=== PATIENT | female | born 1995 | race American Indian/Alaskan Native ===

== ENCOUNTER 2018-04-22 18:05 | Inpatient (IN) | payer MEDICAID ==
[2018-04-22] MEDS ORDERED: LACTATED RINGERS 1,000 ML ONE (21:02)
[2018-04-22] MEDS: LACTATED RINGERS 1,000 ML IV SCH (21:15)
[2018-04-22] MEDS ORDERED: CERVIDIL VG ONE (22:29)
[2018-04-22] MEDS ORDERED: AMBIEN PO PRN (22:29)
[2018-04-22] MEDS ORDERED: STADOL IV PRN (22:29)
[2018-04-22 22:55] LABS: Hematocrit 35.1 % (30.3-42.9); Hemoglobin 12.1 gm/dl (10.1-14.3); Mean Corpuscular HGB Conc 34 % (30-34); Mean Corpuscular Volume 91 fl (79-97); Platelet Count 232 K/mm3 (140-440); Red Blood Count 3.85 M/mm3 (3.65-5.03); Red Cell Distribution Width 13.5 % (13.2-15.2)
[2018-04-23] MEDS ORDERED: PITOCin/NS 30 UNIT/500ML 30 UNITS/500 ML BAG IV SCH (12:00)
[2018-04-23] MEDS: LACTATED RINGERS 1,000 ML IV SCH ×3 (15:29→18:32)
--- NOTE | 2018-04-23 16:23 | History and Physical Report ---
History of Present Illness Date of examination: 04/23/18 Date of admission: 04/22/18 18:05 Chief complaint: IOL History of present illness: 22y/o @ 40+4 weeks being induced for oligohydramnios of 4cm. The patient initiated care @ 11 weeks ega. course complicated by obesity. GBS negative. Past History Past Medical History: no pertinent history Past Surgical History: no surgical history Social history: single - Obstetrical History Expected Date of Delivery: 04/19/18 Actual Gestation: 40 Week(s) 4 Day(s) : 2 Para: 1 Hx # Term Pregnancies: 1 Number of Pregnancies: 0 Spontaneous Abortions: 0 Induced : 0 Number of Living Children: 1 Medications and Allergies Allergies Allergy/AdvReac Type Severity Reaction Status Date / Time No Known Allergies Allergy Verified 04/22/18 22:35 Home Medications Medication Instructions Recorded Confirmed Last Taken Type Pnv,Calcium 72/Iron/Folic Acid 1 tab PO DAILY 04/22/18 04/22/18 04/21/18 History [Pnv Plus Multivit Tab] Active Meds: Active Medications Butorphanol Tartrate (Stadol) 2 mg IV Q2H PRN PRN Reason: Labor Pain Lactated Ringer's (Lactated Ringers) 1,000 mls @ 125 mls/hr IV DIRECT MARVEL Last Admin: 04/23/18 15:29 Dose: 999 mls/hr Documented by: Oxytocin/Sodium Chloride (Pitocin/Ns 30 Unit/500ml) 30 units in 500 mls @ 4 mls/hr IV TITR MARVEL; Protocol Last Admin: 04/23/18 15:30 Dose: 4 milliunits/min, 4 mls/hr Documented by: Zolpidem Tartrate (Ambien) 10 mg PO QHS PRN PRN Reason: Insomnia - Vital Signs Vital signs: Vital Signs Pulse BP 82 119/62 04/22/18 19:42 04/22/18 19:42 Temp Pulse Resp BP Pulse Ox 96.9 F L 80 20 135/80 04/23/18 03:56 04/23/18 16:00 04/23/18 03:56 04/23/18 16:00 - Physical Exam Breasts: Positive: deferred Cardiovascular: Regular rate Lungs: Positive: Clear to auscultation Abdomen: Positive: normal appearance Results Result Diagrams: 04/22/18 21:15 All other labs normal. Assessment and Plan - Patient Problems (1) Oligohydramnios Current Visit: Yes Status: Acute Plan to address problem: admit for induction of labor (2) Oligohydramnios Current Visit: Yes Status: Acute (3) Post-term Current Visit: Yes Status: Acute
[2018-04-23] MEDS ORDERED: XYLOCAINE 2%/ EPI 1:200,000 INFILTRATI ONE (17:43)
[2018-04-23] MEDS ORDERED: SUBLIMAZE ONE (17:43)
[2018-04-23] MEDS ORDERED: NARCAN 2 MG/2 ML IV PRN (18:09)
--- NOTE | 2018-04-23 18:11 | Anesthesia Consultation ---
Anesthesia Consult and Med Hx Date of service: 04/23/18 - Airway Anesthetic Teeth Evaluation: Good ROM Head & Neck: Adequate Mental/Hyoid Distance: Adequate Mallampati Class: Class II Intubation Access Assessment: Good - Pulmonary Exam CTA: Yes - Cardiac Exam Cardiac Exam: RRR - Pre-Operative Health Status ASA Pre-Surgery Classification: ASA2 Proposed Anesthetic Plan: Epidural - Pulmonary Hx Smoking: No Hx Asthma: No COPD: No Hx Pneumonia: No - Cardiovascular System Hx Hypertension: No Hx Coronary Artery Disease: No Hx Cardia Arrhythmia: No - Central Nervous System Hx Neuromuscular Disorder: No Hx Seizures: No Hx Psychiatric Problems: No - Endocrine Hx Renal Disease: No Hx End Stage Renal Disease: No Hx Cirrhosis: No Hx Insulin Dependent Diabetes: No Hx Non-Insulin Dependent Diabetes: No Hx Hypothyroidism: No Hx Hyperthyroidism: No - Hematic Hx Anemia: No Hx Sickle Cell Disease: No - Other Systems Hx Alcohol Use: Yes Hx Obesity: Yes (48 BMI)
[2018-04-23] MEDS ORDERED: PITOCin/NS 20 UNIT/1000ML DRIP 20,000 MILLIUNITS/1,000 ML BAG IV ONE (18:33)
[2018-04-23] MEDS ORDERED: fentaNYL-BUPIV 2 MCG/ML-0.125% 200 MCG/100 ML BAG EPIDURAL SCH (19:00)
[2018-04-23] MEDS ORDERED: XYLOCAINE 2% INFILTRATI ONE (19:43)
[2018-04-23] MEDS ORDERED: MINERAL OIL ONE (19:44)
[2018-04-23] MEDS ORDERED: PHENERGAN PR PRN (23:13)
[2018-04-23] MEDS ORDERED: DULCOLAX PR PRN (23:13)
[2018-04-23] MEDS ORDERED: BENADRYL PO PRN (23:13)
[2018-04-23] MEDS ORDERED: MILK OF MAGNESIA PO PRN (23:13)
[2018-04-23] MEDS ORDERED: TYLENOL PO PRN (23:13)
[2018-04-23] MEDS ORDERED: LANSINOH TP PRN (23:13)
[2018-04-23] MEDS ORDERED: ZOFRAN IV PRN (23:13)
[2018-04-23] MEDS ORDERED: PHENERGAN PO PRN (23:13)
[2018-04-23] MEDS ORDERED: TUCKS PAD TP PRN (23:13)
[2018-04-23] MEDS ORDERED: NORCO 5/325 PO PRN (23:13)
[2018-04-23] MEDS ORDERED: SODIUM CHLORIDE FLUSH SYRINGE 10 ML IV NR (23:45)
--- NOTE | 2018-04-23 23:50 | Procedure Note ---
OB Delivery Note - Delivery Date of Delivery: 04/23/18 Surgeon: SUSIE OCONNELL Estimated blood loss: 100cc - Vaginal Delivery presentation: vertex Delivery position: OP Intrapartum events: none Delivery augmentation: pitocin Delivery monitor: external FHT Route of delivery: Delivery placenta: spontaneous Delivery cord: 3 umbilical vessels Episiotomy: none Delivery laceration: none Anesthesia: epidural Delivery comments: Patient progressed to complete complete +2 and pushed to deliver a liveborn female infant with Apgars of 8 and 9 weight 7 lbs. 0 oz. After delivery of the head the shoulders delivered without difficulty. The infant was bulb suctioned. The cord was clamped and cut 2 and the infant was placed on the warmer. The placenta delivered spontaneously intact with a three-vessel cord. No lacerations were noted. Estimated blood loss of 100 mL. - A at 1 minute: 8 at 5 minutes: 9 Infant Gender: Female (weight 7 lbs. 0 oz.)
[2018-04-24] MEDS: IBUPROFEN PO SCH ×3 (05:41→23:52)
--- NOTE | 2018-04-24 07:23 | Post Anesthesia Evaluation ---
- Post Anesthesia Evaluation Patient Participated: Yes Airway Patent: Yes Stable Respiratory Function: Yes Nausea/Vomiting: No Temp > 96.8F: Yes Pain Manageable: Yes Adequeate Hydration: Yes Anesthesia Complications: No Block Receding Appropriately: Yes Patient on Ventilator: No
--- NOTE | 2018-04-24 08:39 | Progress Note ---
Assessment and Plan A/P PPD1 s/p Doing well vss consider d/c home tomorrow Subjective - Subjective Date of service: 04/24/18 Principal diagnosis: s/p Patient reports: appetite normal, voiding normally, pain well controlled, flatus, ambulating normally : doing well Objective - Vital Signs Latest vital signs: Vital Signs Temp Pulse Resp BP BP Pulse Ox 04/24/18 08:33 98.9 F 78 18 112/49 97 04/24/18 06:32 20 04/24/18 05:41 18 04/24/18 03:26 98.2 F 90 20 113/58 100 04/24/18 01:35 96 H 115/56 04/24/18 01:20 96 H 113/57 04/24/18 01:10 95 H 115/61 04/24/18 00:53 96 H 97 04/24/18 00:50 94 H 140/63 04/24/18 00:48 92 H 94 04/24/18 00:43 87 98 04/24/18 00:38 101 H 98 04/24/18 00:37 105 H 84 04/24/18 00:33 98 H 97 04/24/18 00:32 92 H 92 04/24/18 00:28 90 97 04/24/18 00:23 98 H 98 04/24/18 00:20 99 H 130/63 04/24/18 00:18 96 H 96 04/24/18 00:16 100 H 94 04/24/18 00:13 98 H 97 04/24/18 00:11 107 H 94 04/24/18 00:08 93 H 100 04/24/18 00:05 99 H 116/50 88 04/24/18 00:03 107 H 100 04/23/18 23:58 81 100 04/23/18 23:53 87 127/61 97 04/23/18 23:51 110 H 132/65 04/23/18 23:36 95 H 134/62 04/23/18 23:20 86 126/56 04/23/18 23:06 86 149/65 04/23/18 22:53 74 100 04/23/18 22:52 72 103/49 04/23/18 22:48 90 98 04/23/18 22:43 79 99 04/23/18 22:38 78 100 04/23/18 22:35 74 168/72 04/23/18 22:33 87 100 04/23/18 22:29 82 68 L 04/23/18 22:28 82 99 04/23/18 22:23 77 92 04/23/18 22:22 88 93 04/23/18 22:20 93 H 152/92 04/23/18 22:18 90 100 04/23/18 22:13 74 100 04/23/18 22:08 77 100 04/23/18 22:05 74 144/85 04/23/18 22:03 72 100 04/23/18 21:58 84 100 04/23/18 21:53 70 100 04/23/18 21:50 72 121/60 04/23/18 21:48 80 100 04/23/18 21:43 75 100 04/23/18 21:38 77 99 04/23/18 21:35 71 126/60 04/23/18 21:33 77 100 04/23/18 21:28 69 100 04/23/18 21:23 69 100 04/23/18 21:20 69 133/61 04/23/18 21:18 70 100 04/23/18 21:17 72 117/64 04/23/18 21:13 71 100 04/23/18 21:08 73 100 04/23/18 21:03 81 100 04/23/18 21:01 105 H 93 04/23/18 20:58 76 100 04/23/18 20:53 79 100 04/23/18 20:50 100 H 93 04/23/18 20:48 83 100 04/23/18 20:43 80 100 04/23/18 20:38 83 100 04/23/18 20:35 81 124/56 04/23/18 20:33 80 100 04/23/18 20:28 103 H 100 04/23/18 20:23 109 H 100 04/23/18 20:20 100 H 118/55 04/23/18 20:18 101 H 98 04/23/18 20:13 91 H 100 04/23/18 20:08 84 100 04/23/18 20:07 81 97/55 04/23/18 19:55 73 88 04/23/18 19:53 78 100 03/07/19 19:50 80 113/55 04/23/18 19:48 79 100 04/23/18 19:45 84 74 L 04/23/18 19:43 79 100 04/23/18 19:38 76 100 04/23/18 19:36 101 H 109/62 68 L 04/23/18 19:33 82 100 04/23/18 19:28 75 100 04/23/18 19:24 83 93 04/23/18 19:23 82 100 04/23/18 19:20 74 133/59 04/23/18 19:18 78 100 04/23/18 19:15 97.6 F 73 20 133/59 100 04/23/18 19:14 77 130/58 04/23/18 19:13 73 99 04/23/18 19:08 72 100 04/23/18 19:03 71 100 04/23/18 18:58 74 100 04/23/18 18:53 84 99 04/23/18 18:51 77 127/58 04/23/18 18:48 79 100 04/23/18 18:43 72 99 04/23/18 18:38 83 100 04/23/18 18:34 83 133/62 04/23/18 18:33 83 99 04/23/18 18:32 92 H 116/67 04/23/18 18:30 94 H 127/66 04/23/18 18:28 82 100 04/23/18 18:27 80 128/60 04/23/18 18:25 81 124/58 04/23/18 18:23 79 120/58 100 04/23/18 18:22 78 131/60 04/23/18 18:20 101 H 124/56 04/23/18 18:18 109 H 129/59 100 04/23/18 18:15 81 131/59 04/23/18 18:13 83 134/60 04/23/18 18:11 90 134/61 04/23/18 18:09 81 134/58 04/23/18 18:08 76 135/65 04/23/18 18:07 73 99 04/23/18 18:06 72 166/58 04/23/18 18:03 81 89/44 04/23/18 18:02 82 98 04/23/18 18:01 93 H 102/51 04/23/18 17:57 93 H 100 04/23/18 17:52 95 H 100 04/23/18 17:47 92 H 100 04/23/18 17:42 79 100 04/23/18 17:37 91 H 99 04/23/18 17:29 81 142/85 04/23/18 16:59 81 123/80 04/23/18 16:49 64 124/67 04/23/18 16:30 75 120/57 04/23/18 16:00 80 135/80 04/23/18 15:13 75 117/65 Intake and Output 04/23/18 04/24/18 04/24/18 23:59 07:59 15:59 Intake Total 1865.8 240 360 Output Total 300 Balance 1865.8 -60 360 Intake: IV 1865.8 Lactated Ringers 1,000 ml 1865.8 @ 125 mls/hr IV DIRECT MARVEL Rx#:[id number] Oral 240 Intake, Free Water 360 Output: Urine 300 Void 300 Other: Total, Intake Amount 240 Total, Output Amount 300 # Voids Void 1 1 Estimated Blood Loss 100 - Exam Breasts: Present: normal Cardiovascular: Present: Regular rate, Normal S1 Lungs: Present: Clear to auscultation, Normal air movement Abdomen: Present: normal appearance, soft, normal bowel sounds. Absent: distention, tenderness, guarding Uterus: Present: normal, firm, fundal height below umbilicus. Absent: bogginess, tenderness Extremities: Present: normal Deep Tendon Reflex Grade: Normal +2 Incision: Present: normal
--- NOTE | 2018-04-24 12:49 | Discharge Summary ---
Providers - Providers Date of Admission: 04/22/18 18:05 Date of discharge: 04/25/18 Attending physician: SUSIE OCONNELL Primary care physician: SUSIE OCONNELL Hospitalization Reason for admission: active labor, induction of labor Delivery: Episiotomy: none Laceration: none Incision: normal, dry, intact Other procedures: none Discharge diagnosis: IUP at term delivered baby: female Hospital course: unnremarkable hospital course Condition at discharge: Good Disposition: DC-01 TO HOME OR SELFCARE Plan - Discharge Medications Prescriptions: Ibuprofen [Motrin] 600 mg PO Q8H PRN #30 tablet PRN Reason: Pain oxyCODONE /ACETAMINOPHEN [Percocet 5/325] 1 tab PO Q6HR PRN #30 tablet PRN Reason: Pain - Provider Discharge Summary Activity: routine, no sex for 6 weeks, no strenuous exercise Diet: routine Instructions: routine Additional instructions: [] Smoking cessation referral if applicable(refer to patient education folder for contact #) [] Refer to [facility] Booklet Call your doctor immediately for: * Fever > 100.5 * Heavy vaginal bleeding ( >1 pad per hour) * Severe persistent headache * Shortness of breath * Reddened, hot, painful area to leg or breast * Drainage or odor from incision. * Keep incision clean and dry at all times and follow doctor's instructions regarding bathing/showering - Follow up plan Follow up: SUSIE OCONNELL MD [Primary Care Provider] - 05/21/18
[2018-04-24 13:25] LABS: Hematocrit 33.9 % (30.3-42.9); Hemoglobin 11.6 gm/dl (10.1-14.3)
[2018-04-25 10:43] VITALS: BP 99/47
== END 2018-04-25 12:50 | disposition home or self-care (01) | DRG 775 ==
LOC: LD 18:05 → OB 04-24 02:14
PROVIDERS: ADMIT Obstetrics & Gynecology; ATTEND Obstetrics & Gynecology
PROC: 10E0XZZ Delivery of Products of Conception, External Approach (ICD-10-PCS; principal; 2018-04-23)
PROC: 3E0R3BZ Introduction of Anesthetic Agent into Spinal Canal, Percutaneous Approach (ICD-10-PCS; 2018-04-23)
PROC: 00HU33Z Insertion of Infusion Device into Spinal Canal, Percutaneous Approach (ICD-10-PCS; 2018-04-23)
DX: O41.03X0 Oligohydramnios, third trimester, not applicable or unspecified (principal); O48.0 Post-term pregnancy; O99.214 Obesity complicating childbirth; E66.9 Obesity, unspecified; Z3A.40 40 weeks gestation of pregnancy; Z37.0 Single live birth
CPT/HCPCS: 36415; 59200; 85014; 85018; 85027; 86592; 86850; 86900; 86901; G0378; J2590; J3010; J7120

== ENCOUNTER 2021-02-09 01:41 | Outpatient (CLI) | payer MEDICAID ==
[2021-02-09 02:42] VITALS: BP 122/60
== END 2021-02-09 03:35 | disposition home or self-care (01) ==
LOC: TRG 01:41 → APU 01:43 → TRG 03:35
PROVIDERS: ATTEND Obstetrics & Gynecology
DX: Z34.93 Encounter for supervision of normal pregnancy, unspecified, third trimester (principal); Z3A.37 37 weeks gestation of pregnancy
CPT/HCPCS: 36415; 59025; 84112

== ENCOUNTER 2021-05-18 05:44 | Day surgery (SDC) | payer MEDICAID ==
[2021-05-14 09:29] LABS: Hematocrit 37.9 % (30.3-42.9); Hemoglobin 12.8 gm/dl (10.1-14.3); Mean Corpuscular HGB Conc 34 % (30-34); Mean Corpuscular Volume 87 fl (79-97); Platelet Count 250 K/mm3 (140-440); Red Blood Count 4.37 M/mm3 (3.65-5.03)
[2021-05-14 09:39] LABS: BUN/Creatinine Ratio 16; Blood Urea Nitrogen 14 mg/dL (7-17); Calcium 9.2 mg/dL (8.4-10.2); Hemolysis Index 12
[2021-05-18] MEDS ORDERED: MIDAZOLAM 2 MG/2 ML INJ IV NR (06:00)
[2021-05-18] MEDS ORDERED: SCOPOLAMINE TRANSDERMAL PATCH 72 HR TD NR (06:00)
[2021-05-18] MEDS ORDERED: GABAPENTIN 300 MG CAP PO NR (06:00)
[2021-05-18] MEDS ORDERED: CELECOXIB 200 MG CAP PO NR (06:00)
[2021-05-18] MEDS ORDERED: LACTATED RINGERS 1,000 ML IV SCH (06:00)
[2021-05-18] MEDS ORDERED: ACETAMINOPHEN 500 MG TAB PO SCH (06:00)
[2021-05-18] MEDS ORDERED: BUPIVACAINE/PF (0.5%) 5 MG/1 ML 30 ML VIAL INFILTRATI ONE ×2 (07:04→08:38)
[2021-05-18] MEDS ORDERED: LIDOCAINE (1%) 10 MG/1 ML VIAL 20 ML MDV ONE (07:04)
--- NOTE | 2021-05-18 07:08 | Anesthesia Consultation ---
Anesthesia Consult and Med Hx Date of service: 05/18/21 - Airway Anesthetic Teeth Evaluation: Good ROM Head & Neck: Adequate Mental/Hyoid Distance: Adequate Mallampati Class: Class III Intubation Access Assessment: Possibly Difficult - Pre-Operative Health Status ASA Pre-Surgery Classification: ASA3 Proposed Anesthetic Plan: General - Pulmonary Hx Smoking: Yes (THC only) Hx Respiratory Symptoms: No - Cardiovascular System Hx Hypertension: No - Central Nervous System CVA: No - Endocrine Hx Renal Disease: No Hx Liver Disease: No Hx Insulin Dependent Diabetes: No Hx Non-Insulin Dependent Diabetes: No Hx Thyroid Disease: No - Other Systems Hx Substance Use: Yes (THC once daily) Hx Obesity: Yes (BMI 49) - Additional Comments Anesthesia Medical History Comments: No hx anesthetic complications.
[2021-05-18] MEDS ORDERED: ONDANSETRON 4 MG/2 ML INJ IV PRN ×2 (07:09→10:16)
[2021-05-18] MEDS ORDERED: oxyCODONE /ACETAMINOPHEN 5-325MG TAB PO PRN (07:09)
--- NOTE | 2021-05-18 07:09 | Anesthesia Day of Surgery ---
Anesthesia Day of Surgery - Day of Surgery Patient Examined: Yes Patient H&P Reviewed: Yes Patient is NPO: Yes
[2021-05-18] MEDS ORDERED: ONDANSETRON 4 MG/2 ML INJ ONE ×2 (07:41→10:18)
[2021-05-18] MEDS ORDERED: ROCURONIUM 50 MG/5 ML INJ IV ONE (07:41)
[2021-05-18] MEDS ORDERED: LIDOCAINE MPF (2%) 20 MG/1 ML VIAL 5 ML ONE (07:41)
[2021-05-18] MEDS ORDERED: propofoL 200 MG/20 ML VIAL IV ONE (07:42)
[2021-05-18] MEDS ORDERED: HYDROmorphone 1 MG/1 ML INJ ONE (07:42)
[2021-05-18] MEDS ORDERED: LIDOCAINE (1%) 10 MG/1 ML VIAL 20 ML MDV INFILTRATI ONE (08:38)
[2021-05-18] MEDS ORDERED: WATER FOR IRRIG STERILE 1,500 ML BOTTLE IR ONE (08:39)
[2021-05-18] MEDS ORDERED: ceFAZolin/STERILE WATER 2 GM/20 ML SYRINGE IV NR (09:00)
[2021-05-18] MEDS ORDERED: NEOSTIGMINE 10MG/10 ML INJ MDV ONE (09:09)
[2021-05-18] MEDS ORDERED: GLYCOPYRROLATE 0.4 MG/2 ML INJ ONE (09:09)
--- NOTE | 2021-05-18 09:18 | Short Stay Summary ---
Short Stay Documentation Date of service: 05/18/21 - History Principal diagnosis: symptomatic cholelithiasis H&P: obtained from office - Allergies and Medications Current Medications: Allergies metronidazole [From Flagyl] Adverse Reaction (Intermediate, Verified 05/11/21 12:32) Hives Home Medications Medication Instructions Recorded Confirmed Last Taken Type Pnv,Calcium 72/Iron/Folic Acid 1 tab PO DAILY 04/22/18 03/02/21 04/29/21 09:00 History [Pnv Plus Multivit Tab] Ibuprofen [Motrin] 600 mg PO PRN PRN 05/11/21 Unknown History Active Medications Acetaminophen (Acetaminophen 500 Mg Tab) 1,000 mg PO PREOP MARVEL Last Admin: 05/18/21 06:35 Dose: 1,000 mg Celecoxib (Celecoxib 200 Mg Cap) 200 mg PO PREOP NR Stop: 05/18/21 23:59 Last Admin: 05/18/21 06:35 Dose: 200 mg Gabapentin (Gabapentin 300 Mg Cap) 300 mg PO PREOP NR Stop: 05/18/21 23:00 Last Admin: 05/18/21 06:35 Dose: 300 mg Hydromorphone HCl (Hydromorphone 1 Mg/1 Ml Inj) 0.5 mg IV Q10MIN PRN PRN Reason: Pain , Severe (7-10) Stop: 05/18/21 20:00 Lactated Ringer's (Lactated Ringers) 1,000 mls @ 100 mls/hr IV DIRECT MARVEL Stop: 05/18/21 23:59 Last Admin: 05/18/21 06:35 Dose: 100 mls/hr Cefazolin Sodium 3 gm/ Sodium (Chloride) 100 mls @ 100 mls/30 min IV PREOP NR; Protocol Stop: 05/18/21 23:00 Midazolam HCl (Midazolam 2 Mg/2 Ml Inj) 2 mg IV PREOP NR Stop: 05/18/21 23:00 Ondansetron HCl (Ondansetron 4 Mg/2 Ml Inj) 4 mg IV ONCE PRN PRN Reason: Nausea And Vomiting Stop: 05/18/21 10:00 Oxycodone/Acetaminophen (Oxycodone /Acetaminophen 5-325mg Tab) 1 tab PO ONCE PRN PRN Reason: Pain, Moderate (4-6) Stop: 05/18/21 10:00 Scopolamine (Scopolamine Transdermal Patch 72 Hr) 1 each TD PREOP NR Stop: 05/18/21 23:00 Last Admin: 05/18/21 06:35 Dose: 1 each - Brief post op/procedure progress note Date of procedure: 05/18/21 Pre-op diagnosis: Symptomatic cholelithiasis Post-op diagnosis: same Procedure: Robotic assisted cholecystectomy Anesthesia: GETA, local Findings: Gallbladder with numerous small stones Surgeon: ABRAHAM CAMARA Director Medicare Sales: LATRICE PRINGLE Estimated blood loss: minimal Pathology: list (Gallbladder) Specimen disposition: to lab Condition: stable - Hospital course Hospital course: Patient observed in PACU and discharged home in stable condition when criteria met - Disposition Condition at discharge: Good Disposition: 01 HOME / SELF CARE / HOMELESS Short Stay Discharge Plan Activity: other (No heavy lifting x2 weeks) Diet: regular Wound: open to air, per your surgeon's advice Additional Instructions: See printed discharge instruction Follow up with: PRIMARY CARE,MD [Primary Care Provider] - 7 Days ABRAHAM CAMARA DO [Staff Physician] - 14 Days Prescriptions: Ibuprofen [Motrin 600 MG tab] 600 mg PO PRN PRN #30 tab PRN Reason: Pain, Moderate (4-6) HYDROcodone/APAP 5-325 [Amasa 5/325] 1 each PO Q6HR PRN #20 tablet PRN Reason: Pain , Severe (7-10)
[2021-05-18] MEDS: HYDROmorphone 1 MG/1 ML INJ IV PRN ×2 (09:35→09:45)
--- NOTE | 2021-05-18 10:23 | Operative Report ---
Operative Report Operative Report: Date of procedure: 05/18/21 Pre-op diagnosis: Symptomatic cholelithiasis Post-op diagnosis: same Procedure: Robotic assisted cholecystectomy Anesthesia: GETA, local Findings: Gallbladder with numerous small stones Surgeon: ABRAHAM CAMARA Briar Cutter: LATRICE PRINGLE Estimated blood loss: minimal Pathology: list (Gallbladder) Specimen disposition: to lab Condition: stable Hospital course: Patient observed in PACU and discharged home in stable condition when criteria met Condition at discharge: Good Disposition: HOME / SELF CARE Date of procedure: 04/03/21 Pre-op diagnosis: Symptomatic cholelithiasis Post-op diagnosis: same Procedure: Robotic assisted cholecystectomy Anesthesia: GETA, local Findings: Distended gallbladder Surgeon: ABRAHAM CAMARA Briar Cutter: Ester WALL Estimated blood loss: minimal Pathology: list (Gallbladder) Specimen disposition: to lab Condition: stable Hospital course: Patient observed in PACU and discharged home in stable condition when criteria met Condition at discharge: Good Disposition: HOME / SELF CARE / HOMELESS HPI an indication: 26 year-old female who presented to the surgery clinic with complaints of intermittent sharp right upper quadrant abdominal pain. Patient found to have stones in the gallbladder without evidence of cholecystitis or biliary ductal dilatation on imaging. Her symptoms were believed to be associated with symptomatic cholelithiasis. It was recommended that the patient undergo cholecystectomy. All risks, benefits, alternatives to surgery were discussed in detail and questions answered. Consent was obtained for robotic assisted laparoscopic, possible open cholecystectomy, possible cholangiogram. Procedure in detail: The patient was identified in the preoperative area and taken back to the operating room, placed on the operating room table in supine position. After anesthesia was induced, the abdomen was prepped and draped in usual sterile fashion and timeout was performed. Local anesthetic was infiltrated into all of the skin incision sites. A minna incision was made in the left upper quadrant at Arora's point through which a Veress needle was inserted. The Veress needle positioning was confirmed using saline drop test and the abdomen insufflated to 15 mmHg without incident. A supra umbilical incision, slightly to the right of midline was made through which a 5 mm Optiview trocar was placed. The abdomen was inspected and there was no underlying injury to the abdominal structures. The Veress needle was removed. An 8 mm robotic trocar was placed in the right upper abdomen, and the left lower abdomen, and in the left lateral abdomen all under direct visualization. The 5 mm supraumbilical trocar was removed and replaced with a 12 mm balloon trocar under direct visualization. The patient was placed in reverse Trendelenburg and tilted to the left. The robot was then docked. A monopolar hook was placed in arm #1, a caudier grasper in arm #2, and a prograsp in arm #3. The surgeon was then transferred to the console. The gallbladder was visualized and the fundus was grasped and retracted cephalad and above the liver. Patient had a fatty liver. The cystic duct and artery were carefully skeletonized. The medial and lateral peritoneal attachments to the gallbladder were dissected using a combination of blunt dissection and hook electrocautery. The cystic duct and artery were the only 2 structures seen entering the gallbladder and the critical view was successfully obtained. 2 hemolock clips were placed on the proximal aspect of the cystic duct and 1 distally, and 1 hemolock clip was placed on the proximal aspect of the cystic artery. Cystic duct was transected in between the clips using EndoShears by the assistant professor of philosophy surgeon. The cystic artery was ligated using hook electrocautery just distal to the clip. The gallbladder was dissected from the liver bed using electrocautery. Once completely dissected it was placed into the right upper quadrant and the liver bed was examined for hemostasis. This was very carefully ensured. The clips were visualized and intact. There was no bleeding or bile leakage. The robot was then undocked and the surgeon scrubbed back in. The remainder of the case was performed laparoscopically. The gallbladder was placed into a Endo Catch bag and removed from the abdomen via the 12mm port. The gallbladder was palpated and contained numerous very small stones close to the neck. The 12 mm port fascia was closed with interrupted 0 Vicryl suture using the Aren Danielson device. The remaining ports were removed under direct visualization. Skin incisions were closed with 4-0 Monocryl subcuticular stitches and skin glue. All skin incisions were once again infiltrated with local anesthetic. At the end case all sponge, instrument, sharp counts were correct 2. The patient was awoken from anesthesia, extubated, and taken to PACU in stable condition.
--- NOTE | 2021-05-18 11:37 | Post Anesthesia Evaluation ---
- Post Anesthesia Evaluation Patient Participated: Yes Airway Patent: Yes Stable Respiratory Function: Yes Nausea/Vomiting: Yes (antiemetic given) Temp > 96.8F: Yes Pain Manageable: Yes Adequeate Hydration: Yes Anesthesia Complications: No
[2021-05-18 12:09] VITALS: BP 124/73
== END 2021-05-18 11:45 | disposition home or self-care (01) ==
LOC: OR 05:44
PROVIDERS: ATTEND Surgery
DX: K80.10 Calculus of gallbladder with chronic cholecystitis without obstruction (principal); Z20.822 Contact with and (suspected) exposure to COVID-19; E66.01 Morbid (severe) obesity due to excess calories; K21.9 Gastro-esophageal reflux disease without esophagitis; Z72.89 Other problems related to lifestyle; Z79.899 Other long term (current) drug therapy; Z88.8 Allergy status to other drugs, medicaments and biological substances; Z87.440 Personal history of urinary (tract) infections; Z68.42 Body mass index [BMI] 45.0-49.9, adult; Z80.8 Family history of malignant neoplasm of other organs or systems; Z82.49 Family history of ischemic heart disease and other diseases of the circulatory system
CPT/HCPCS: 36415; 47562; 80048; 84703; 85027; 88304; J0690; J1170; J1815; J2405; J2704; J2710; J3490; J7120; S2900; U0003